=== PATIENT | male | born 1965 | race African-American/Black ===

== ENCOUNTER 2016-06-06 09:12 | Emergency (ER) | payer SELFPAY ==
[~2016-06-06] VITALS: Ht 180.3 cm; Wt 113.0 kg
[~2016-06-06 09:12] MED LIST: ALBU2.5I INH; ALBU8I INH; CETI10 PO; PRED20 PO
[2016-06-06 09:20] VITALS: BP 112/83; PULSE 84; RESP 18; TEMP 98.3; O2SAT 96
[2016-06-06] MEDS ORDERED: ALBU.5I NEB (09:32)
[2016-06-06] MEDS ORDERED: BACL20TA PO (09:32)
[2016-06-06] MEDS ORDERED: VENTAER INH (09:32)
[2016-06-06] MEDS ORDERED: SYMB80AE INH (09:32)
[2016-06-06] MEDS ORDERED: methylPREDNISolone SOD SUCC 125 MG/2 ML VIAL IM SCH (09:45)
[2016-06-06] MEDS ORDERED: KETOROLAC TROMETHAMINE 60 MG/2 ML (IM) VIAL IM ONE (09:45)
[2016-06-06] MEDS ORDERED: RANI150T PO (09:53)
[2016-06-06] MEDS ORDERED: MEDR4PAK PO (09:53)
[2016-06-06] MEDS ORDERED: INDO50CA PO (09:53)
--- NOTE | 2016-06-06 09:53 | PD ---
HPI Chief Complaint: Musculoskeletal Complaint Time Seen by Provider: 09:29 Travel History International Travel<30 days: No Contact w/Intl Traveler<30days: No Traveled to known affect area: No History of Present Illness HPI This is a 50-year-old male who presents to the emergency department with 2 weeks of pain in his buttock area radiating down intermittently into the upper posterior thigh, worse with walking and straightening his leg, improved with rest. He says it feels sharp and stabbing. He's been taking baclofen which was prescribed by his primary care physician but it's not helping. He's having trouble standing for long periods of time. He denies any weakness. He does say his leg feels intermittently numb. He denies any urinary or bladder incontinence. He has no history of IV drug use. 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 PFSH Past Medical History Asthma: Yes Diminished Hearing: No Respiratory: Yes (asthma) Immunizations Current: Yes Past Surgical History Other Surgery: Yes (right Achilles surgery) Social History Alcohol Use: No Tobacco Use: No Substance Use: No Allergies-Medications (Allergen,Severity, Reaction): Coded Allergies: No Known Allergies (Verified , 06/06/16) Reported Meds & Prescriptions Reported Meds & Active Scripts Active Reported Baclofen 20 Mg Tab 20 Mg PO DAILY PRN Albuterol Neb (Albuterol Sulfate) 2.5 Mg/0.5 Ml Neb 2.5 Mg NEB TID NEB PRN Note: The Albuterol Sulfate Inhalation Solution is concentrated and must be diluted. Read complete instructions carefully before using. Symbicort Inh (Budesonide/Formoterol Fumarate) 80-4.5 Mcg/Act Aero 1 Puff INH Q12HR Ventolin Hfa 18 GM Inh (Albuterol Sulfate) 90 Mcg/Act Aer 2 Puff INH Q4-6H PRN Review of Systems Except as stated in HPI: all other systems reviewed are Neg Physical Exam Narrative GENERAL:Well appearing, no acute distress SKIN: Warm and dry. HEAD: Atraumatic. Normocephalic. EYES: Pupils equal and round. No injection or drainage. ENT: Moist mucous membranes NECK: Trachea midline. CARDIOVASCULAR: Regular rate and rhythm. No murmur appreciated. 2+ bilateral DP pulses with normal capillary refill. RESPIRATORY: Clear to auscultation. Breath sounds equal bilaterally. GASTROINTESTINAL: Abdomen soft, non-tender, nondistended. MUSCULOSKELETAL: Pain with flexion at the left hip with a positive straight leg raise on the contralateral side NEUROLOGICAL: Awake and alert. No obvious cranial nerve deficits. 5 out of 5 strength in the bilateral lower extremities. PSYCHIATRIC: Appropriate mood and affect; insight and judgment normal. Data Data Last Documented VS Vital Signs Date Time Temp Pulse Resp B/P Pulse Ox O2 Delivery O2 Flow Rate FiO2 06/06/16 09:20 98.3 84 18 112/83 96 MDM Medical Decision Making Medical Screen Exam Complete: Yes Emergency Medical Condition: Yes Interpretation(s) Afebrile, no tachycardia, normotensive Differential Diagnosis Lumbosacral radiculopathy, cauda equina syndrome, meralgia paresthetica, sacroiliitis Narrative Course This is a 50-year-old male who presents to the emergency department with 2 weeks of pain in his left buttock that radiates somewhat down the leg and is associated with some numbness. I suspect he has a lumbosacral radiculopathy. He has no red flags for cauda equina syndrome or epidural abscess. I think he would benefit from steroids and anti-inflammatories. Patient was given IM Toradol and saluMedrol here in the emergency department and will be discharged on prescriptions. Diagnosis Primary Impression: Radiculopathy of lumbosacral region Patient Instructions: General Instructions Additional Instructions: If you develop weakness of your legs, difficulty walking, numbness of her legs or your genital or rectal area, loss of your bowel or bladder, or difficulty urinating return to the emergency department immediately. Followup with your primary care physician in one week if your symptoms have not improved. Med/Other Pt SpecificInfo: Prescription(s) given Scripts Ranitidine 150 Mg Byb102 Mg PO BID #60 TAB Ref 0 Prov:Griselda Peguero MD 06/06/16 Indomethacin 50 Mg Cap50 Mg PO TID PRN (PAIN SCALE 4 TO 10) #20 CAP Ref 0 Take with food, milk, or antacids to decrease stomach adverse effects. Prov:Griselda Peguero MD 06/06/16 Methylprednisolone Dosepak (Medrol Dosepak)4 Mg Dspk4 Mg PO DIRECTED #1 DSPK Ref 0 Per Pharmacist direction Prov:Griselda Peguero MD 06/06/16 Disposition: 01 DISCHARGE HOME Condition: Stable Griselda Peguero MD Jun 06, 2016 09:53
== END 2016-06-06 10:17 | disposition home or self-care (01) ==
LOC: PHED 09:12
DX: M54.17 Radiculopathy, lumbosacral region (principal)
CPT/HCPCS: 96372; 99283; J1885; J2930

== ENCOUNTER 2016-07-08 22:47 | Emergency (ER) | payer SELFPAY ==
[~2016-07-08] VITALS: Ht 177.8 cm; Wt 113.0 kg
[~2016-07-08 22:47] MED LIST changes: +ALBU.5I NEB; -ALBU2.5I INH; -ALBU8I INH; +BACL20TA PO; -CETI10 PO; +INDO50CA PO; +MEDR4PAK PO; -PRED20 PO; +RANI150T PO; +SYMB80AE INH; +VENTAER INH
[2016-07-08 22:49] VITALS: BP 126/79; PULSE 95; RESP 16; TEMP 99.3; O2SAT 98
[2016-07-08] MEDS ORDERED: predniSONE 20 MG TAB PO ONE (23:15)
[2016-07-08] MEDS ORDERED: diphenhydrAMINE HCL 50 MG CAP PO ONE (23:15)
[2016-07-08] MEDS ORDERED: PRED20 PO (23:25)
[2016-07-08] MEDS ORDERED: BENA25TA3 PO (23:25)
--- NOTE | 2016-07-08 23:27 | PD ---
HPI Chief Complaint: Laceration/Skin Injury Time Seen by Provider: 23:10 Travel History International Travel<30 days: No Contact w/Intl Traveler<30days: No Traveled to known affect area: No History of Present Illness HPI 50-year-old male with pruritic areas of skin. He reports that yesterday he slipped in a hotel and developed various areas of pruritus on his upper extremities and torso. Symptoms are mild, no aggravating or relieving factors. Denies any shortness of breath, swelling of lips tongue or throat. No other complaints. PFSH Past Medical History Asthma: Yes Diminished Hearing: No Respiratory: Yes (asthma) Immunizations Current: Yes Past Surgical History Surgical History: No Previous Surgery Other Surgery: Yes (right Achilles surgery) Social History Alcohol Use: No Tobacco Use: No Substance Use: No Allergies-Medications (Allergen,Severity, Reaction): Coded Allergies: No Known Allergies (Verified , 07/08/16) Reported Meds & Prescriptions Reported Meds & Active Scripts Active Benadryl Allergy (Diphenhydramine HCl) 25 Mg Tab 25 Mg PO Q6H PRN Prednisone 20 Mg Tab 20 Mg PO BID 5 Days Ranitidine (Ranitidine HCl) 150 Mg Tab 150 Mg PO BID Indomethacin 50 Mg Cap 50 Mg PO TID PRN Take with food, milk, or antacids to decrease stomach adverse effects. Medrol Dosepak (Methylprednisolone) 4 Mg Dspk 4 Mg PO DIRECTED Per Pharmacist direction Reported Baclofen 20 Mg Tab 20 Mg PO DAILY PRN Albuterol Neb (Albuterol Sulfate) 2.5 Mg/0.5 Ml Neb 2.5 Mg NEB TID NEB PRN Note: The Albuterol Sulfate Inhalation Solution is concentrated and must be diluted. Read complete instructions carefully before using. Symbicort Inh (Budesonide/Formoterol Fumarate) 80-4.5 Mcg/Act Aero 1 Puff INH Q12HR Ventolin Hfa 18 GM Inh (Albuterol Sulfate) 90 Mcg/Act Aer 2 Puff INH Q4-6H PRN Review of Systems Except as stated in HPI: all other systems reviewed are Neg Physical Exam Narrative GENERAL: Well-nourished male in no acute distress SKIN: Warm and dry. The patient has some scattered focal areas of soft tissue swelling on the extremities and back, neck, consistent with localized reaction to bug bites. HEAD: Atraumatic. Normocephalic. EYES: Pupils equal and round. No scleral icterus. No injection or drainage. ENT: No nasal bleeding or discharge. Mucous membranes pink and moist. NECK: Trachea midline. No JVD. CARDIOVASCULAR: Regular rate and rhythm. No murmur appreciated. RESPIRATORY: No accessory muscle use. Clear to auscultation. Breath sounds equal bilaterally. Data Data Last Documented VS Vital Signs Date Time Temp Pulse Resp B/P Pulse Ox O2 Delivery O2 Flow Rate FiO2 07/08/16 22:49 99.3 95 16 126/79 98 Orders Prednisone (Deltasone) (07/08/16 23:15) Diphenhydramine (Benadryl) (07/08/16 23:15) [facility] Medical Decision Making Medical Screen Exam Complete: Yes Emergency Medical Condition: Yes Medical Record Reviewed: Yes Differential Diagnosis Localized allergic reaction to bug bites versus contact dermatitis versus scabies versus bedbugs versus hives Narrative Course Examination is consistent with localized allergic reaction to bug bites. He is being treated with oral prednisone and Benadryl. Diagnosis Primary Impression: Bug bites Qualified Code: W57.XXXA - Bug bites, initial encounter Additional Instructions: Medication as prescribed. Avoid scratching. Follow-up with primary care as needed. Return for any emergent medical conditions. Med/Other Pt SpecificInfo: Prescription(s) given Scripts Diphenhydramine (Benadryl Allergy)25 Mg Tab25 Mg PO Q6H PRN (ALLERGIES) #20 TAB Ref 0 Prov:Latrice England MD 07/08/16 Prednisone 20 Mg Tab20 Mg PO BID 5 Days Ref 0 Prov:Latrice England MD 07/08/16 Disposition: 01 DISCHARGE HOME Condition: Stable John Paul Jul 08, 2016 23:27
== END 2016-07-09 00:05 | disposition home or self-care (01) ==
LOC: NEPK 22:47
DX: S40.862A Insect bite (nonvenomous) of left upper arm, initial encounter (principal); S40.861A Insect bite (nonvenomous) of right upper arm, initial encounter; S20.469A Insect bite (nonvenomous) of unspecified back wall of thorax, initial encounter; S10.86XA Insect bite of other specified part of neck, initial encounter; W01.0XXA Fall on same level from slipping, tripping and stumbling without subsequent striking against object, initial encounter; W57.XXXA Bitten or stung by nonvenomous insect and other nonvenomous arthropods, initial encounter; Y92.59 Other trade areas as the place of occurrence of the external cause; J45.909 Unspecified asthma, uncomplicated
CPT/HCPCS: 99282; J7512; Q0163